=== PATIENT | male | born 2005 | race Caucasian/White ===

== ENCOUNTER 2023-07-30 10:59 | Emergency (ER) | payer OTHER ==
[~2023-07-30] VITALS: Ht 177.8 cm; Wt 85.9 kg
[2023-07-30 11:05] VITALS: BP 151/75; PULSE 85; RESP 20; TEMP 98.3; O2SAT 97
[2023-07-30 12:01] LABS: BASOPHILS % (AUTO) 0.4 % (0.0-2.0); EOSINOPHILS % (AUTO) 0.3 % (0.0-4.0); HEMATOCRIT 46.3 % (36-52); LYMPHOCYTES # (AUTO) 1.1 K/uL (2.0-11.5); LYMPHOCYTES % (AUTO) 14.4 % (20.5-51.1); MEAN CORPUSCULAR HEMOGLOBIN 29 pg (27-31); MEAN CORPUSCULAR HGB CONC 35 g/dL (33-37); MONOCYTES # (AUTO) 0.4 K/uL (0.8-1.0); MONOCYTES % (AUTO) 5.4 % (1.7-9.3); NEUTROPHILS % (AUTO) 79.5 % (42.2-75.2); PLATELET COUNT (AUTO) 219 K/uL (140-450); RED BLOOD CELL COUNT(AUTO) 5.45 MIL/uL (4.20-6.10); RED CELL DISTRIBUTION WIDTH 13.3 % (11.6-13.7); WHITE BLOOD COUNT (AUTO) 7.5 K/uL (4.5-11.0)
[2023-07-30 12:24] LABS: ALBUMIN 4.6 g/dL (3.4-5.0); ANION GAP 13.3 (8-16); CALCIUM 9.9 mg/dL (8.5-10.1); CARBON DIOXIDE 26.9 mmol/L (21-32); CREATININE 0.9 mg/dL (0.6-1.3); POTASSIUM 4.2 mmol/L (3.5-5.1); TOTAL BILIRUBIN 1.6 mg/dL (0.0-1.0)
[2023-07-30] MEDS ORDERED: BUPR1FIL4 SL (13:57)
[2023-07-30 14:16] VITALS: BP 115/64; PULSE 79; RESP 17; O2SAT 99
== END 2023-07-30 14:16 | disposition home or self-care (01) ==
LOC: MED 10:59
DX: F11.23 Opioid dependence with withdrawal (principal); R03.0 Elevated blood-pressure reading, without diagnosis of hypertension; Z79.899 Other long term (current) drug therapy
CPT/HCPCS: 36415; 80053; 85025; 99283

== ENCOUNTER 2024-03-30 20:16 | Emergency (ER) | payer MEDICAID, OTHER ==
[~2024-03-30] VITALS: Ht 170.2 cm; Wt 68.0 kg
[~2024-03-30 20:16] MED LIST: BUPR1FIL4 SL
[2024-03-30 20:30] VITALS: BP 142/88; PULSE 102; RESP 16; TEMP 98.2; O2SAT 98
[2024-03-30] MEDS: IBUPROFEN 400 MG TAB PO ONE (20:54)
[2024-03-30] MEDS: ACETAMINOPHEN 325 MG TAB PO ONE (20:54)
[2024-03-30 22:47] VITALS: O2SAT 97
== END 2024-03-30 21:01 | disposition home or self-care (01) ==
LOC: MED 20:16
DX: M25.552 Pain in left hip (principal); Z79.899 Other long term (current) drug therapy
CPT/HCPCS: 99283